=== PATIENT | female | born 1935 | race Caucasian/White ===

== ENCOUNTER 2017-07-11 19:45 | Inpatient (IN) | payer MEDICARE ==
[~2017-07-11] VITALS: Ht 144.8 cm; Wt 82.2 kg
[2017-07-11 22:16] LABS: PLATELET COUNT 237 x10^3mcL (130-400)
[2017-07-11 22:18] LABS: RED CELL DISTRIBUTION WIDTH 23.7 % (11.5-14.5)
[2017-07-11 22:21] LABS: CALCIUM 8.2 mg/dL (8.5-10.1); CARBON DIOXIDE 29.4 mmol/L (21-32); CHLORIDE SERUM 106 mmol/L (98-107); CREATININE SERUM 0.5 mg/dL (0.6-1.0); GLUCOSE SERUM 94 mg/dL (74-106); POTASSIUM SERUM 4.4 mmol/L (3.5-5.1); SODIUM SERUM 140 mmol/L (136-145)
[2017-07-11 22:32] LABS: ALKALINE PHOSPHATASE 120 U/L (46-116); ALT/SGPT 23 U/L (14-59); AMYLASE 60 U/L (25-115); AST/SGOT 18 U/L (15-37); BILIRUBIN TOTAL 0.2 mg/dL (0.20-1.00); HDL CHOLESTEROL 57 mg/dL (40-60); LIPASE 115 IU/L (73-393); T4(THYROXINE) 6.7 ug/dL (4.7-13.3); TOTAL PROTEIN, SERUM 6.2 g/dL (6.4-8.2)
[2017-07-11 22:33] LABS: ALBUMIN 3.3 g/dL (3.4-5.0); CHOLESTEROL 127 mg/dL (<200)
[2017-07-11 22:47] LABS: rbc morphology (normal/abnorm) ABNORMAL (NORMAL)
[2017-07-11 23:32] LABS: UA SPECIFIC GRAVITY 1.015 (1.005-1.035); microscopic required? YES; urine erythrocyte NEGATIVE (NEGATIVE)
[2017-07-11 23:41] LABS: AMPHETAMINE QUAL UR NONE DETECTED (NEG <=1000)
[2017-07-12 02:08] LABS: MAGNESIUM 2.5 mg/dL (1.8-2.4); PHOSPHOROUS 3.7 mg/dL (2.5-4.9)
[2017-07-12 03:02] VITALS: BP 150/72
[2017-07-12 07:43] VITALS: BP 155/68
[2017-07-12 12:10] VITALS: BP 135/60
[2017-07-12 17:07] VITALS: BP 140/70
[2017-07-12 21:11] VITALS: BP 146/65
[2017-07-13 05:51] VITALS: BP 152/76
[2017-07-13 06:22] LABS: CALCIUM 8.3 mg/dL (8.5-10.1); CARBON DIOXIDE 27.7 mmol/L (21-32); CHLORIDE SERUM 106 mmol/L (98-107); CREATININE SERUM 0.3 mg/dL (0.6-1.0); GLUCOSE SERUM 92 mg/dL (74-106); SODIUM SERUM 140 mmol/L (136-145)
[2017-07-13 07:32] LABS: BASOPHIL % 0.4 % (0-2); PLATELET COUNT 216 x10^3mcL (130-400)
[2017-07-13 07:34] LABS: RED CELL DISTRIBUTION WIDTH 23.9 % (11.5-14.5)
[2017-07-13 07:38] LABS: rbc morphology (normal/abnorm) ABNORMAL (NORMAL)
[2017-07-13 09:31] VITALS: BP 156/77
[2017-07-13 14:11] VITALS: BP 154/78
[2017-07-13] MEDS ORDERED: TOPROL XL25 MG PO (16:43)
[2017-07-13] MEDS ORDERED: CARDIZEM CD360 MG PO (16:43)
[2017-07-13] MEDS ORDERED: SIMVASTATIN10 M1 PO (16:44)
[2017-07-13 20:27] VITALS: BP 112/67
[2017-07-14 05:56] VITALS: BP 143/86
[2017-07-14 09:07] VITALS: BP 146/84
[2017-07-14] MEDS ORDERED: NITROFURANTOIN100 MG PO (11:39)
[2017-07-14] MEDS ORDERED: LAC PO (11:40)
[2017-07-14 12:00] VITALS: BP 146/84
== END 2017-07-14 13:26 | disposition home or self-care (01) | DRG 604 ==
LOC: ED 19:45 → DU 07-12 00:48
PROVIDERS: Emergency Medicine; Family Medicine
PROC: 0HQ0XZZ Repair Scalp Skin, External Approach (ICD-10-PCS; principal; 2017-07-12)
DX: S01.81XA Laceration without foreign body of other part of head, initial encounter (principal); N17.0 Acute kidney failure with tubular necrosis; N39.0 Urinary tract infection, site not specified; E44.1 Mild protein-calorie malnutrition; I10 Essential (primary) hypertension; G90.8 Other disorders of autonomic nervous system; D64.9 Anemia, unspecified; M06.9 Rheumatoid arthritis, unspecified; M19.012 Primary osteoarthritis, left shoulder; S09.90XA Unspecified injury of head, initial encounter; E83.41 Hypermagnesemia; K43.9 Ventral hernia without obstruction or gangrene; W18.39XA Other fall on same level, initial encounter; Y93.89 Activity, other specified; Y92.89 Other specified places as the place of occurrence of the external cause; Y99.8 Other external cause status; Z90.49 Acquired absence of other specified parts of digestive tract; Z68.39 Body mass index [BMI] 39.0-39.9, adult
CPT/HCPCS: 83880; J0696; J2001; J7030; Q0092